=== PATIENT | male | born 1990 | race Caucasian/White ===

== ENCOUNTER 2018-12-25 19:41 | Emergency (ER) | payer OTHER ==
[~2018-12-25] VITALS: Ht 167.6 cm; Wt 124.7 kg
[~2018-12-25 19:41] MED LIST: CITA20 PO; CODACE30 PO; CRUTCH4 USE; Ciprodex Otic7.5 ML LEFTEAR; Flomax0.4 MG PO; IBUP800 PO; Norco 5-325 Ta1 EACH PO
[2018-12-25] MEDS ORDERED: VENLAFAXINE HCL75 MG PO (20:09)
[2018-12-25] MEDS ORDERED: IBU800 MG PO (21:41)
== END 2018-12-25 22:10 | disposition home or self-care (01) ==
LOC: ER 19:41
DX: S93.402A Sprain of unspecified ligament of left ankle, initial encounter (principal); X50.9XXA Other and unspecified overexertion or strenuous movements or postures, initial encounter; Z79.899 Other long term (current) drug therapy; Z91.018 Allergy to other foods; Z87.891 Personal history of nicotine dependence
CPT/HCPCS: 29515; 73610; 99283-25

== ENCOUNTER 2019-07-24 05:53 | Emergency (ER) | payer OTHER ==
[~2019-07-24] VITALS: Ht 170.2 cm; Wt 118.8 kg
[~2019-07-24 05:53] MED LIST changes: +IBU800 MG PO; +VENLAFAXINE HCL75 MG PO
[2019-07-24] MEDS ORDERED: KEFLEX500 MG PO (08:17)
== END 2019-07-24 08:32 | disposition home or self-care (01) ==
LOC: ER 05:53
DX: J02.9 Acute pharyngitis, unspecified (principal); F32.9 Major depressive disorder, single episode, unspecified; F17.290 Nicotine dependence, other tobacco product, uncomplicated; Z79.899 Other long term (current) drug therapy
CPT/HCPCS: 36415; 86308; 87081; 87147; 87430; 96361; 96374; 96375; 99283-25; J0696; J1100; J1885; J2405; J7030